=== PATIENT | female | born 1960 | race Native Hawaiian/Other Pacific Islander ===

== ENCOUNTER 2017-02-11 17:41 | Outpatient (CLI) | payer OTHER ==
[2017-02-11] MEDS ORDERED: COZAAR25 MG PO (21:00)
[2017-02-11] MEDS ORDERED: ZANTAC300 MG PO (21:01)
[2017-02-11] MEDS ORDERED: OMEPRAZOLE20 M1 PO (21:01)
[2017-02-11] MEDS ORDERED: BISO5TAB2 PO (21:02)
== END 2017-02-11 18:08 | disposition short-term general hospital (02) ==
LOC: AMB 17:41
DX: R55 Syncope and collapse (principal); R53.1 Weakness
CPT/HCPCS: A0425; A0427

== ENCOUNTER 2017-02-11 18:15 | Emergency (ER) | payer OTHER ==
[~2017-02-11] VITALS: Ht 167.6 cm; Wt 117.9 kg
[2017-02-11 19:49] LABS: PLATELET COUNT 215 K/uL (152-353)
[2017-02-11 19:53] LABS: POTASSIUM 3.3 mmol/L (3.6-5.2)
[2017-02-11] MEDS ORDERED: COZAAR25 MG PO (21:00)
[2017-02-11] MEDS ORDERED: OMEPRAZOLE20 M1 PO (21:01)
[2017-02-11] MEDS ORDERED: ZANTAC300 MG PO (21:01)
[2017-02-11] MEDS ORDERED: BISO5TAB2 PO (21:02)
[2017-02-11 21:58] VITALS: BP 142/74; TEMP 98.1
== END 2017-02-11 21:58 | disposition home or self-care (01) ==
LOC: ED 18:15
PROVIDERS: Specialist
DX: I95.1 Orthostatic hypotension (principal); R00.1 Bradycardia, unspecified
CPT/HCPCS: 80053; 83735; 84100; 84484; 85027; 93005; 96365; 96374; 96375; 99284; J1720; J3411; J3475; J3490

== ENCOUNTER 2018-06-15 07:46 | Outpatient (CLI) | payer OTHER ==
[~2018-06-15 07:46] MED LIST: BISO5TAB2 PO; COZAAR25 MG PO; OMEPRAZOLE20 M1 PO; ZANTAC300 MG PO
== END 2018-06-15 19:27 | disposition home or self-care (01) ==
LOC: MRI 07:46
DX: S83.282D Other tear of lateral meniscus, current injury, left knee, subsequent encounter (principal)

== ENCOUNTER 2019-01-12 08:27 | Outpatient (CLI) | payer OTHER | END 2019-01-12 23:20 | disposition home or self-care (01) | LOC: MRI 08:27 | DX: M48.02 Spinal stenosis, cervical region (principal); G89.29 Other chronic pain; M54.5 Low back pain ==

== ENCOUNTER 2019-11-23 10:56 | Outpatient (CLI) | payer OTHER | END 2019-11-23 21:51 | disposition home or self-care (01) | LOC: RAD 10:56 → MRI 10:56 | DX: M54.16 Radiculopathy, lumbar region (principal) ==